=== PATIENT | male | born 1990 | race African-American/Black ===

== ENCOUNTER 2021-10-24 07:35 | Emergency (ER) | payer SELFPAY ==
[2021-10-24] MEDS ORDERED: Prochlorperazine 10 MG/2 ML VIAL ONE (10:02)
[2021-10-24] MEDS ORDERED: diphenhydrAMINE 50 MG/ML VIAL ONE (10:02)
== END 2021-10-24 11:43 | disposition home or self-care (01) ==
LOC: CSHERS 07:35
DX: G43.909 Migraine, unspecified, not intractable, without status migrainosus (principal); F17.210 Nicotine dependence, cigarettes, uncomplicated
CPT/HCPCS: 96374; 96375; J0780; J1200

== ENCOUNTER 2021-11-01 17:08 | Emergency (ER) | payer SELFPAY ==
[2021-11-02 11:26] LABS: SARS-CoV-2 PCR by NAA Not Detected (NotDetected)
== END 2021-11-01 20:12 | disposition home or self-care (01) ==
LOC: CSHERS 17:08
DX: J06.9 Acute upper respiratory infection, unspecified (principal); Z20.822 Contact with and (suspected) exposure to COVID-19; F17.210 Nicotine dependence, cigarettes, uncomplicated
CPT/HCPCS: 87804; 99283; U0003; U0005

== ENCOUNTER 2021-11-13 09:34 | Emergency (ER) | payer SELFPAY | END 2021-11-13 11:25 | disposition home or self-care (01) | LOC: CSHERS 09:34 | DX: S93.602A Unspecified sprain of left foot, initial encounter (principal); F17.210 Nicotine dependence, cigarettes, uncomplicated; X58.XXXA Exposure to other specified factors, initial encounter ==

== ENCOUNTER 2023-10-07 19:53 | Emergency (ER) | payer SELFPAY ==
[2023-10-07 20:52] LABS: SARS-CoV-2 NAA Rapid Test Not Detected (NotDetected)
== END 2023-10-07 22:35 | disposition home or self-care (01) ==
LOC: CSHERS 19:53
DX: J10.1 Influenza due to other identified influenza virus with other respiratory manifestations (principal); F17.210 Nicotine dependence, cigarettes, uncomplicated; Z20.822 Contact with and (suspected) exposure to COVID-19
CPT/HCPCS: 99283